=== PATIENT | male | born 1990 | race Caucasian/White ===

== ENCOUNTER 2017-09-16 12:41 | Emergency (ER) | payer OTHER ==
[~2017-09-16] VITALS: Ht 190.5 cm; Wt 90.7 kg
[2017-09-16 13:15] LABS: ABSOLUTE LYMPHOCYTES 1.2 thou/uL (0.8-5.3); ABSOLUTE MONOCYTES 0.2 thou/uL (0.0-1.2); ABSOLUTE NEUTROPHILS 2.6 thou/uL (1.6-8.1); BASOPHILS 0.9 %; EOSINOPHILS 0.7 %; HEMATOCRIT 44.4 % (42.0-52.0); HEMOGLOBIN 14.9 gm/dL (14.0-18.0); MCH 28.1 pg (26.0-34.0); MCHC 33.7 g/dL (28.0-37.0); MCV 83.3 fL (80.0-100.0); MONOCYTES 5.8 %; MPV 9.1 fl. (7.2-11.1); NUCLEATED RBCS 0 /100WBC; PLATELET COUNT* 163 thou/uL (150-400); POLYS 63.6 %; RBC 5.33 mil/uL (4.50-6.00); RDW-CV 13.4 % (10.5-14.5); WBC 4.1 thou/uL (4.0-11.0)
[2017-09-16 13:31] LABS: ANION GAP 6 mmol/L (7-16); BUN 13 mg/dL (7-18); CALCIUM 8.7 mg/dL (8.5-10.1); CHLORIDE 104 mmol/L (98-107); CO2 30 mmol/L (21-32); CREATININE 1.1 mg/dL (0.6-1.3); GLUCOSE 125 mg/dL (70-99); SODIUM 140 mmol/L (136-145)
[2017-09-16 13:42] LABS: ALBUMIN 4.2 g/dL (3.4-5.0); ALKALINE PHOSPHATASE 53 U/L (46-116); NT-PRO BRAIN NAT PEPTIDE 37 pg/mL (<300); SGOT 12 U/L (15-37); SGPT 20 U/L (30-65); TOTAL BILIRUBIN 0.7 mg/dL (<0.1-1.0); TOTAL PROTEIN 7.4 g/dL (6.4-8.2); TROPONIN-I LEVEL <0.06 ng/mL (<0.06)
[2017-09-16 13:58] LABS: AMP/METHAMP Negative (Negative); BARBITURATES Negative (Negative); BENZODIAZEPINES Negative (Negative); COCAINE Negative (Negative); METHADONE Negative (Negative); OPIATES Negative (Negative); PCP Negative (Negative); THC Negative (Negative)
[2017-09-16 15:02] VITALS: BP 142/80
--- NOTE | 2017-09-16 16:34 | EKG ---
[place] [address] ELECTROCARDIOGRAM REPORT Name: ANDRE MORENO Room: [facility].#: [id number] Admission: 09/16/17 Attend Phys: Discharge: 09/16/17 Date of : [birth year] Report #: [id number] THIS REPORT FOR: //name// [facility] ED Test Date: 2017-09-16 Test Time: 12:54:03 Pat Name: ANDRE MORENO Department: Room: Gender: M [employer] Machine Operator: LAZARA : 1990 Requested By: Angel Luis Murrieta Order Number: [id number] MD: Giacomo Alatorre Measurements Intervals [place] Rate: 74 P: 55 SD: 171 QRS: 64 QRSD: 89 T: 42 QT: 356 QTc: 395 Interpretive Statements Sinus rhythm Early repolarization No previous ECG available for comparison Electronically Signed On 09-16-2017 16:34:29 CDT by Giacomo Alatorre [email or web address] <ELECTRONICALLY SIGNED> By: Giacomo Alatorre MD, [facility] 09/16/17 1634 1254 1254 Giacomo Alatorre MD, FACC /EPI
== END 2017-09-16 15:02 | disposition home or self-care (01) ==
LOC: M.ERS 12:41
PROVIDERS: Emergency Medicine
DX: R55 Syncope and collapse (principal); M79.672 Pain in left foot; Z88.1 Allergy status to other antibiotic agents